=== PATIENT | male | born 1970 | race Two or more races ===

== ENCOUNTER 2020-05-04 08:19 | Inpatient (IN) | payer MEDICARE, OTHER ==
[~2020-05-04] VITALS: Ht 165.1 cm; Wt 101.8 kg
[2020-05-04] MEDS ORDERED: DEXTROSE 50% SYRINGE 50 ML IV ONE (08:24)
[2020-05-04] MEDS ORDERED: DEXTROSE 10% 1,000 ML IV ONE ×2 (08:29→08:45)
[2020-05-04 08:51] LABS: Basophils # (auto) 0.1 10 ^3/uL (0-0.2); Basophils % (auto) 0.8 % (0.0-2.0); Eosinophils # (auto) 0.3 10 ^3/uL (0-0.8); Eosinophils % (auto) 3.6 % (0.0-7.0); Hematocrit 40.2 % (41.0-53.0); Hemoglobin 13.5 g/dL (13.5-17.5); Lymphocytes # (auto) 2.3 10 ^3/uL (0.4-5.4); Lymphocytes % (auto) 27.5 % (10.0-50.0); Mean Corpuscular Hemoglobin 30.8 pg (28.0-32.0); Mean Corpuscular Hgb Conc. 33.7 g/dL (32.0-36.0); Mean Corpuscular Volume 91.6 fL (80.0-100.0); Monocytes # (auto) 0.6 10 ^3/uL (0-1.3); Monocytes % (auto) 7.4 % (0.0-12.0); Neutrophils # (auto) 5.1 10 ^3/uL (1.6-8.6); Neutrophils % (auto) 60.7 % (37.0-80.0); Platelet Count (auto) 390 10^3/uL (140-450); Red Blood Cells 4.39 10^6/uL (4.5-5.90); Red Cell Distribution Width 14.9 % (11.8-14.3); White Blood Cell 8.3 10^3/uL (4.4-10.8)
[2020-05-04 09:13] LABS: Alanine Aminotransferase 44 U/L (16-61); Anion Gap 6 (5-15); Aspartate Aminotransferase 40 U/L (15-37); Blood Urea Nitrogen 26 mg/dL (7-18); Calcium 8.5 mg/dL (8.5-10.1); Carbon Dioxide 21 mmol/L (21-32); Chloride 114 mmol/L (98-107); GFR African American 34 mL/min; GFR Non-African American 28 mL/min; Magnesium 2.2 mg/dL (1.6-2.6); Potassium 3.7 mmol/L (3.5-5.1); Sodium 141 mmol/L (136-145)
[2020-05-04 09:18] LABS: Alkaline Phosphatase 235 U/L (45-117); Bilirubin, Total 0.2 mg/dL (0.2-1.0); Total Protein 7.2 g/dL (6.4-8.2)
[2020-05-04 09:24] LABS: Glucose 38 mg/dL (74-106)
[2020-05-04 09:38] LABS: Albumin 2.1 g/dL (3.4-5.0)
[2020-05-04] MEDS ORDERED: HYDROcodone-ACET 5/325MG TAB PO PRN (13:30)
[2020-05-04] MEDS ORDERED: ACETAMINOPHEN 325 MG TAB PO PRN (13:30)
[2020-05-04] MEDS ORDERED: ONDANSETRON HCL 4 MG/2 ML VIAL IV PRN (13:30)
[2020-05-04] MEDS ORDERED: MORPHINE SULF INJ 2 MG/ML SYRINGE 1ML IV PRN ×2 (13:30)
[2020-05-04] MEDS ORDERED: DOCUSATE SOD 100 MG CAP PO PRN (13:30)
[2020-05-04] MEDS ORDERED: ALUM & MAG HYDROX-SIMETH LIQ(MAALOX) 30 ML PO PRN (13:30)
[2020-05-04] MEDS ORDERED: NITROGLYCERIN 0.4 MG SL TAB SL PRN (13:30)
[2020-05-04] MEDS ORDERED: LORazepam 0.5 MG TAB PO PRN (13:30)
[2020-05-04] MEDS ORDERED: SODIUM CHLORIDE 0.9% 1,000 ML IV SCH (14:00)
[2020-05-04] MEDS ORDERED: DEXTROSE (50%) 50ML SYRG IV PRN (14:00)
[2020-05-04] MEDS ORDERED: LISINOPRIL 20 MG TAB PO ONE (14:00)
[2020-05-04] MEDS ORDERED: LACTATED RINGER'S 1,000 ML IV ONE (14:00)
[2020-05-04] MEDS ORDERED: hydrALAZINE HCL 20 MG/ML VL IV PRN (14:00)
[2020-05-04] MEDS ORDERED: cefTRIAXone 1GM/50ML D5W 50 ML IV ONE (14:15)
[2020-05-04] MEDS ORDERED: D5W/SOD CHLO 0.9% 1,000 ML IV SCH (14:15)
[2020-05-04 15:46] LABS: Cholesterol 296 mg/dL (< 200); HDL Cholesterol 66 mg/dL (40-59); LDL Cholesterol 213 mg/dL (< 100); Triglycerides 165 mg/dL (< 150)
[2020-05-04] MEDS ORDERED: CHOL20007 PO (15:49)
[2020-05-04] MEDS ORDERED: AML5T PO (15:49)
[2020-05-04] MEDS ORDERED: INSREG3 SC (15:49)
[2020-05-04] MEDS ORDERED: OMEG306C PO (15:49)
[2020-05-04] MEDS ORDERED: INSLANTI SC (15:49)
[2020-05-04] MEDS ORDERED: FAMO-12 PO (15:49)
[2020-05-04] MEDS ORDERED: METO-159 PO (15:49)
[2020-05-04] MEDS ORDERED: ENALAPRILAT 1.25 MG/ML-1ML VIAL IV PRN (16:00)
[2020-05-04] MEDS ORDERED: ENALAPRILAT 1.25 MG/ML-1ML VIAL IV ONE (16:30)
[2020-05-04] MEDS: InsuLIN REG 1unit/0.01ml Soln (100units/ml) SC SCH ×2 (17:00→21:46)
[2020-05-04] MEDS: ACCU-CHEK COMFORT CURVE STRIP VI SCH ×2 (17:24→21:45)
[2020-05-04] MEDS: FUROSEMIDE 20 MG/2 ML VIAL IV SCH (17:35)
[2020-05-04] MEDS: METOPROLOL TARTRATE 25 MG TAB PO SCH (21:44)
[2020-05-04] MEDS: D5W/SOD CHLO 0.9% 1,000 ML IV SCH (21:45)
[2020-05-04 22:00] VITALS: BP 148/91
[2020-05-04] MEDS ORDERED: CARVEDILOL 3.125 MG TAB PO SCH (22:00)
[2020-05-04] MEDS ORDERED: ATORVASTATIN 20 MG TAB PO SCH (22:00)
[2020-05-04 22:13] LABS: Urine Bacteria NONE SEEN /hpf (None Seen); Urine Blood TRACE /uL (Negative); Urine Mucus FEW (None Seen); Urine Specific Gravity 1.008 (1.001-1.035); Urine WBC 1 /hpf (0 - 3)
[2020-05-04 22:25] LABS: Alcohol, Urine < 3.0 mg/dL (0-10); Amphetamine Screen, Urine NEGATIVE (NEGATIVE); Barbiturate Scree,Urine NEGATIVE (NEGATIVE); Benzodiazephine Screen, Urine NEGATIVE (NEGATIVE); Cannabinoid Screen, Urine NEGATIVE (NEGATIVE); Cocaine Screen, Urine NEGATIVE (NEGATIVE); Opiate Scree,Urine NEGATIVE (NEGATIVE); Phencyclidine Screen, Urine NEGATIVE (NEGATIVE)
[2020-05-05 05:00] VITALS: BP 155/92
[2020-05-05] MEDS: ACCU-CHEK COMFORT CURVE STRIP VI SCH ×2 (05:59→11:30)
[2020-05-05] MEDS: FUROSEMIDE 20 MG/2 ML VIAL IV SCH (06:04)
[2020-05-05] MEDS: InsuLIN REG 1unit/0.01ml Soln (100units/ml) SC SCH ×2 (06:19→11:30)
[2020-05-05 09:00] VITALS: BP 167/98
[2020-05-05] MEDS: METOPROLOL TARTRATE 25 MG TAB PO SCH (09:53)
[2020-05-05] MEDS ORDERED: LISINOPRIL 20 MG TAB PO SCH (10:00)
[2020-05-05] MEDS ORDERED: ENOXAPARIN SOD 40 MG/0.4 ML SYRINGE SC SCH (10:00)
[2020-05-05] MEDS ORDERED: ASPirin 81 mg TAB PO SCH (10:00)
[2020-05-05] MEDS: D5W/SOD CHLO 0.9% 1,000 ML IV SCH (11:25)
[2020-05-05 12:37] VITALS: BP 164/88
[2020-05-05 14:30] VITALS: BP 151/82
== END 2020-05-05 16:10 | disposition home or self-care (01) | DRG 637 ==
LOC: ER 08:19 → TELE 08:20 → TELE-WESTW 20:51
PROVIDERS: ADMIT Hospitalist; ATTEND Family Medicine
DX: E11.649 Type 2 diabetes mellitus with hypoglycemia without coma (principal); G93.41 Metabolic encephalopathy; E43 Unspecified severe protein-calorie malnutrition; C90.00 Multiple myeloma not having achieved remission; I10 Essential (primary) hypertension; E78.5 Hyperlipidemia, unspecified; E66.9 Obesity, unspecified; Z83.3 Family history of diabetes mellitus; Z91.19 Patient's noncompliance with other medical treatment and regimen; Z79.4 Long term (current) use of insulin; Z68.37 Body mass index [BMI] 37.0-37.9, adult; Z79.899 Other long term (current) drug therapy
CPT/HCPCS: 36415; 36600; 70450; 71045; 80053; 80061; 80307; 81001; 82805; 82962; 83036; 83735; 83880; 84484; 85025; 87040; 87086; 93005; 96365; 96375; 99291; G0378; J0696; J1815; J7042

== ENCOUNTER 2025-07-01 11:17 | Emergency (ER) | payer MEDICARE, OTHER ==
[~2025-07-01] VITALS: Ht 180.3 cm; Wt 72.5 kg
[~2025-07-01 11:17] MED LIST: AML5T PO; CHOL20007 PO; FAMO-12 PO; INSLANTI SC; INSREG3 SC; METO-159 PO; OMEG306C PO
[2025-07-01] MEDS ORDERED: LIDOCAINE HCL 100 MG/5ML (2%) SYRG INJ IV ONE (11:18)
[2025-07-01] MEDS ORDERED: EPINEPHrine HCL 1 MG/10 ML SYRG IV ONE (11:18)
[2025-07-01] MEDS ORDERED: SODIUM BICARB 8.4% 50Meq/50ml SYR INJ IV ONE (11:18)
[2025-07-01] MEDS ORDERED: CALCIUM CHLOR(10%) 100MG/ML 10ML SYRINGE IV ONE (11:18)
[2025-07-01] MEDS ORDERED: AMIODARONE HCL (50 MG/ ML) 3 ML VIAL IV ONE (11:18)
[2025-07-01] MEDS ORDERED: ATROPINE SULF 1 MG/10ml SYR IV ONE (11:18)
[2025-07-01] MEDS: SODIUM CHLORIDE 0.9% 1,000 ML IV ONE (12:10)
[2025-07-01] MEDS: PANTOPRAZOLE 40 MG/10 ML VIAL INJ IV ONE (12:13)
--- NOTE | 2025-07-01 12:29 | DVH ---
XY CHEST PORTABLE, HISTORY: R/O pneumonia COMPARISON: None None TECHNICAL DATA: 1 view of the chest was obtained. FINDINGS: Lines and tubes: None Cardiomediastinal silhouette: Prominent Pulmonary vasculature: prominent Lung expansion: normal Lung airspace: normal Lung interstitium: prominent Pleura: normal Pneumothorax: no Bones: Unremarkable Other: no IMPRESSION: Prominent interstitial reticulations can be seen with pulmonary edema.
--- NOTE | 2025-07-01 12:32 | ED.PDOC ---
History of Present Illness HPI Comments Gopal Garrido is a 55-year-old male, with past medical history of CKD stage V, on peritoneal dialysis (at home every night), Multiple Myeloma (on remission) and, hyperlipidemia. The patient came to the ED via EMS with chief complaint of 1 week of generalized weakness associated with loss of appetite, low oral intake, fatigue and shortness of breath while doing his usual activities at home. On further questioning, the patient reports 1 week of noticing dark stools and mild constipation. Today, the patient reports worsen on generalized weakness "it was difficult to get out of bed" this prompted his visit to the ED. The patient denies fever, chills, nausea, vomit, diarrhea, chest pain, hematochezia, abdominal pain or other symptoms. In the ED: BP 109/63mmHg. HR: 100bpm. The patient will be admitted for further assessment and management. Chief Complaint: General Weakness Time Seen by MD: 11:27 Reviewed Notes: Nurses Notes, Medications, Allergies Allergies: Coded Allergies: UNOBTAINABLE (Unverified , 05/04/20) ALOC Home Meds Reported Medications [place]-3 Fatty Acids (FISH OIL) Unknown Strength Cap, PO DAILY, CAP 05/04/20 Cholecalciferol (VITAMIN D3) Unknown Strength Tab, PO DAILY, #30 TAB 5 Refills 05/04/20 Famotidine (Famotidine) Unknown Strength Tab, PO BID, MG 05/04/20 Amlodipine Besylate (NORVASC TABLET) 5 Mg Tb, 2 TAB PO BID, #30 TAB 5 Refills 05/04/20 Metoprolol Tartrate (Metoprolol Tartrate) 100 Mg Tab, 1 TAB PO BID, #60 TAB 5 Refills 05/04/20 Insulin Glargine (Lantus) 100 Unit/Ml Inj, 70 UNIT SC HS, INJ 05/04/20 Insulin Regular (Human) (Humulin R) 100 Unit/Ml Inj, 30 UNIT SC TID, INJ 05/04/20 Information Source: Patient, Emergency Med Personnel (EMS team) Mode of Arrival: EMS Severity: Moderate Timing: Weeks Duration: Since onset Prehospital treatment: 12 Lead EKG, Oxygen (3 lts due to low O2Sat (93%) ) Past Medical History PAST MEDICAL HISTORY: DM, ESRD (stage V, on peritoneal dyalisis at home every night. ) Past Medical History (Other): Multiple myeloma (on remission, he was treated on [facility]) Surgical History: Denies all surgeries Family History Family History: Reviewed,noncontributory to illness Social History Smoker: Non-Smoker Alcohol: Denies ETOH Use Drugs: Denies Drug Use Constitutional: reports: fatigue, weakness (generalized weakness. ); denies: chills, diaphoresis, fever, malaise, sweats, others EENTM: denies: blurred vision, double vision, ear bleeding, ear discharge, ear drainage, ear pain, ear ringing, eye pain, eye redness, hearing loss, mouth pain, mouth swelling, nasal discharge, nose bleeding, nose congestion, nose pain, photophobia, tearing, throat pain, throat swelling, voice changes, others Respiratory: reports: shortness of breath; denies: cough, hemoptysis, orthopnea, SOB at rest, SOB with excertion, stridor, wheezing, others Cardiovascular: denies: chest pain, dizzy spells, diaphoresis, Dyspnea on exertion, edema, irregular heart beat, left arm pain, lightheadedness, palpitations, PND, syncope, others Gastrointestinal: reports: poor appetite (and low oral intake. ), others (low oral intake.) Genitourinary: denies: burning, dysuria, flank pain, frequency, hematuria, incontinence, penile discharge, penile sore, pain, testicle pain, testicle swelling, urgency, others Neurological: denies: dizziness, fainting, headache, left sided numbness, left sided weakness, numbness, paresthesia, pre-existing deficit, right sided numbness, right sided weakness, seizure, speech problems, tingling, tremors, weakness, others Musculoskeletal: denies: back pain, gout, joint pain, joint swelling, muscle pain, muscle stiffness, neck pain, others Integumetry: denies: bruises, change in color, change in hair/nails, dryness, laceration, lesions, lumps, rash, wounds, others Allergic/Immunocompromised: denies: Difficulty Healing, Frequent Infections, Hives, Itching, others Hematologic/Lymphatic: reports: anemia; denies: blood clots, easy bleeding, easy bruising, swollen glands, others Endocrine: denies: excessive hunger, excessive sweating, excessive thirst, excessive urination, flushing, intolerance to cold, intolerance to heat, unexplained weight gain, unexplained weight loss, others Psychiatric: denies: anxiety, bipolar disorder, depression, hopeless, panic disorder, schizophrenia, sleepless, suicidal, others Physical Exam Exam Comments Alert, Oriented x3, on O2 by NC, Saturation O2 99 General Appearance: Mild Distress, Other (pale, slow movement and talks slow. ) HEENT: Normal ENT Inspection, Pharynx Normal, TMs Normal Neck: Full Range of Motion, Non-Tender, Normal Inspection Respiratory: Chest Non-Tender, Lungs Clear, No Accessory Muscle Use, No Respiratory Distress, Normal Breath Sounds Cardiovascular: No Edema, No JVD, No Murmur, No Gallop, Normal Peripheral Pulses, Regular Rate/Rhythm Breast Exam: Deferred Gastrointestinal: No Organomegaly, Non Tender, No Pulsatile Mass, Normal Bowel Sounds, Soft, Other (Left flant: PD tube. 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 Was a procedure done?: No Differential Dx Considerations may include: #Sepsis. # UTI X-Ray, Labs, Meds, VS Vital Signs Date Time Temp Pulse Resp B/P (MAP) Pulse Ox O2 Delivery O2 Flow Rate FiO2 07/01/25 12:42 98 14 137/63 (87) 100 07/01/25 11:59 98.6 101 19 117/47 (70) 96 98.6 07/01/25 11:36 98.3 100 24 109/63 93 98.3 Lab Test 07/01/25 12:22 Range/Units White Blood Count 14.0 H 4.4-10.8 10^3/uL Red Blood Count 1.93 L 4.5-5.90 10^6/uL Hemoglobin 6.3 *L 13.5-17.5 g/dL Hematocrit 19.3 L 41.0-53.0 % Mean Corpuscular Volume 99.8 80.0-100.0 fL Mean Corpuscular Hemoglobin 32.5 H 28.0-32.0 pg Mean Corpuscular Hemoglobin Concent 32.5 32.0-36.0 g/dL Red Cell Distribution Width 14.9 H 11.8-14.3 % Platelet Count 241 140-450 10^3/uL Mean Platelet Volume 7.8 6.9-10.8 fL Neutrophils (%) (Auto) 91.2 H 37.0-80.0 % Lymphocytes (%) (Auto) 3.7 L 10.0-50.0 % Monocytes (%) (Auto) 4.4 0.0-12.0 % Eosinophils (%) (Auto) 0.3 0.0-7.0 % Basophils (%) (Auto) 0.4 0.0-2.0 % Neutrophils # (Auto) 12.8 H 1.6-8.6 10 ^3/uL Lymphocytes # (Auto) 0.5 0.4-5.4 10 ^3/uL Monocytes # (Auto) 0.6 0-1.3 10 ^3/uL Eosinophils # (Auto) 0 0-0.8 10 ^3/uL Basophils # (Auto) 0.1 0-0.2 10 ^3/uL Nucleated Red Blood Cells 0.3 % Sodium Level 135 L 136-145 mmol/L Potassium Level 3.0 L 3.5-5.1 mmol/L Chloride Level 93 L 98-107 mmol/L Carbon Dioxide Level 25 20-31 mmol/L Anion Gap 17 H 5-15 Blood Urea Nitrogen Pending Creatinine Pending Glomerular Filtration Rate Calc Pending BUN/Creatinine Ratio Pending Serum Glucose Pending Lactic Acid Level Pending Calcium Level 8.3 L 8.7-10.4 mg/dL Plasma/Serum Blood Alcohol < 3.0 <10 mg/dL Current Medications Medications (Trade) Dose Ordered Sig/Yessenia Route Start Time Stop Time Status Last Admin Sodium Chloride 1,000 ml @ 1,000 mls/hr Q1H ONCE IV 07/01/25 11:45 07/01/25 12:44 DC 07/01/25 12:10 Pantoprazole Sodium (Protonix) 40 mg ONCE ONCE IV 07/01/25 11:45 07/01/25 11:46 DC 07/01/25 12:13 X-Ray, Labs, Meds, VS Comment 12:51 The patient was re-evaluated HR: 101 bpm BP:137/63mmHg CBC: WBC: 14.0x10e3/uL Hb: 6.3mg/dl Type and screen has been request CMP pending at this time. The patient will be admitted for further assessment and management Time of 1ST Reevaluation: 12:51 Reevaluation 1ST: Unchanged Patient Education/Counseling: Diagnosis, Treatment, Prognosis, Need For Follow Up Family Education/Counseling: Diagnosis, Treatment, Prognosis, Need For Follow Up SEPSIS Sepsis Screen Recent Procedure: Yes On Antibiotic Therapy: Yes Respiratory Rate >20: Yes Heart Rate >90: Yes Temp<36 C (96.8 F) or >38.3 C: No SBP <90 or MAP <65 mmHG: Yes New Acute Mental Status Change: No Is the patient on CPAP, BIPAP,: No IV fluid challenge completed?: No Physician Orders Chest Portable (07/01/25 11:41) Urinalysis (07/01/25 11:41) Basic Metabolic Panel (07/01/25 11:41) Drug Screen (07/01/25 11:41) Blood Alcohol (07/01/25 11:41) Gastric Occult Blood (07/01/25 11:41) Accucheck (07/01/25 12:01) Lactated Ringer's (07/01/25 12:15) Blood Culture (07/01/25 12:01) Lactic Acid W/ Reflex Order (07/01/25 14:00) Lactic Acid W/ Reflex Order (07/01/25 16:00) Cefepime 1gm/50ml (Maxipime 1gm/50ml) (07/01/25 14:00) Notify Md If Map <65 Or Bp<90 (07/01/25 12:01) If Map<65 Start Vasopressor (07/01/25 12:01) Sepsis Reassesment After Fluid (07/01/25 13:01) Type And Screen (07/01/25 12:43) Vital Signs Date Time Temp Pulse Resp B/P (MAP) Pulse Ox O2 Delivery O2 Flow Rate FiO2 07/01/25 12:42 98 14 137/63 (87) 100 07/01/25 11:59 98.6 101 19 117/47 (70) 96 98.6 07/01/25 11:36 98.3 100 24 109/63 93 98.3 Laboratory Tests Test 07/01/25 12:22 Lactic Acid Level Pending White Blood Count 14.0 10^3/uL (4.4-10.8) H Medications Medications Dose Ordered Sig/Yessenia Route Start Time Stop Time Status Last Admin Dose Admin Pantoprazole Sodium 40 mg ONCE ONCE IV 07/01/25 11:45 07/01/25 11:46 DC 07/01/25 12:13 Sodium Chloride 1,000 ml @ 1,000 mls/hr Q1H ONCE IV 07/01/25 11:45 07/01/25 12:44 DC 07/01/25 12:10 Departure 1 Departure Time of Disposition: 12:51 Impression: Primary Impression: GI bleed Additional Impressions: Multiple myeloma Severe anemia Disposition: ADMITTED INPATIENT Condition: Guarded Comments The patient was re-evaluated HR: 101 CBC: WBC: x10e3/uL Hb: mg/dl CMP pending at this time. The patient will admitted for further assessment and management. Critical Care Note Critical Care Time?: Yes (45 min-critical care time only) Stability Stability form required: Yes Unstable for transfer: Telemetry monitoring, ED Physician Assesment Heart Score Heart Score: Heart Score Response (Comments) Value History N/A 0 EKG N/A 0 Age N/A 0 Risk Factors N/A 0 Troponin N/A 0 Total 0 MICHAEL HUI RESIDENT Jul 01, 2025 12:32
[2025-07-01 12:35] LABS: Mean Corpuscular Volume 99.8 fL (80.0-100.0)
[2025-07-01 12:36] LABS: Hematocrit 19.3 % (41.0-53.0); Mean Corpuscular Hemoglobin 32.5 pg (28.0-32.0); Nucleated Red Blood Cells % 0.3 %
[2025-07-01 12:45] LABS: Anion Gap 17 (5-15); Carbon Dioxide 25 mmol/L (20-31); Hemoglobin 6.3 g/dL (13.5-17.5)
[2025-07-01 12:49] LABS: Calcium 8.3 mg/dL (8.7-10.4); Chloride 93 mmol/L (98-107); Potassium 3.0 mmol/L (3.5-5.1); Sodium 135 mmol/L (136-145)
[2025-07-01 12:50] LABS: BUN/Creatinine Ratio 4.3 (10.0-20.0)
[2025-07-01 12:51] LABS: Blood Urea Nitrogen 54 mg/dL (9-23); Glucose 151 mg/dL (74-106)
[2025-07-01 13:15] VITALS: O2SAT 100
[2025-07-01 13:37] LABS: Lactic Acid w/Reflex 4.7 mmol/L (0.4-2.0)
[2025-07-01] MEDS: CEFEPIME 1GM/50ML 50 ML IV ONE (15:00)
[2025-07-01] MEDS: LACTATED RINGER'S 2,250 ML IV ONE (15:10)
[2025-07-01] MEDS: HYDROmorphone HCL 2 MG/ML VL/or syr IV ONE (17:51)
[2025-07-01 18:50] LABS: Lactic Acid w/Reflex 7.2 mmol/L (0.4-2.0)
[2025-07-01] MEDS ORDERED: MORPHINE SULFATE 4 MG/ML SYR/VIAL IV ONE (19:00)
[2025-07-01] MEDS: HYDROcodone-ACET 10/325MG TAB PO ONE (19:15)
[2025-07-01] MEDS: ONDANSETRON HCL 4 MG/2 ML VIAL IV ONE (19:15)
[2025-07-01 19:16] VITALS: TEMP 97.3
[2025-07-01] MEDS: FUROSEMIDE 40 MG/4 ML VIAL IV ONE (19:19)
[2025-07-01] MEDS: NALOXONE HCL 1MG/ML 2ML SYRINGE ONE (19:38)
[2025-07-01] MEDS: NALOXONE HCL 1MG/ML 2ML SYRINGE IV ONE ×3 (19:39→20:30)
[2025-07-01 20:00] VITALS: O2SAT 93
--- NOTE | 2025-07-01 20:11 | ECG ---
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
--- NOTE | 2025-07-01 20:35 | ECG ---
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
[2025-07-01 20:37] VITALS: PULSE 56; RESP 10
[2025-07-01] MEDS: ROCURONIUM 10MG/ML 10ML VIAL IV ONE ×2 (20:37→20:39)
[2025-07-01] MEDS: ETOMIDATE (2MG/ML) 20ML VIAL IV ONE ×2 (20:37→20:38)
[2025-07-01] MEDS: NOREPINEPHRINE 8 MG/250ML KIT 250 ML IV SCH (20:45)
[2025-07-01] MEDS: NOREPINEPHRINE 8 MG/250ML KIT 250 ML IV ONE (20:45)
[2025-07-01] MEDS: EPINEPHrine HCL 1 MG/10 ML SYRG ONE (20:46)
[2025-07-01] MEDS: EPINEPHrine HCL 250 ML IV ONE ×2 (20:46→20:54)
[2025-07-01 21:00] VITALS: BP 153/52
--- NOTE | 2025-07-01 21:28 | RESUS ---
CODE BLUE ASSESSSMENT History of Events History of Events: Patient became bradycardic while in ER and we lost pulses despite 1 atropine given. Patient was recently intubated. Code blue was initiated. Initial Information Date: Jul 01, 2025 Time: 20:52 Location of Arrest: ER Arrest Witnessed: Yes CPR started initial time: 20:52 CPR started by whom: Hospital Staff Last seen well: 30 min prior Pre-Hospital Care: ACLS Type of arrest: Cardiac, Adult, Witnessed Spontaneous Respirations: No Pulse Present: No Monitoring: ECG, Pulse Oximetry, Telemetry Crash Cart Opened and Supplies: Yes Airway Ventilation Breathing at Onset: Assisted O2 Sat by Pulse Oximetry: 98 Oxygen Delivery Method: Ambu-Bag Artificial Ventilation: Bag/Endo tube Intubation Size: 8.0 cuffed Intubated by: Dr. Mir Intubation Attempts: 1 Intubated orally: Yes Tube secured at: 23 (@ lip) Confirmation: Auscultation (with color change) Suctioning (Oral/Tracheal): Yes Circulation Circulation #1: Time: 20:52 Pulse Rate (adult): 0 Blood Pressure Systolic: 0 Blood Pressure Diastolic: 0 Temperature (Fahrenheit): 97.3 Circulation Comment: CODE BLUE - CPR STARTED Circulation #2: Time: 20:54 Pulse Rate (adult): 170 Blood Pressure Systolic: 0 Blood Pressure Diastolic: 0 Circulation Comment: VFIB - Shocked Circulation #3: Time: 20:56 Pulse Rate (adult): 168 Circulation Comment: VFIB - Shocked Circulation #4: Time: 20:58 Pulse Rate (adult): 160 Circulation Comment: VFIB - Shocked Circulation #5: Time: 21:00 Pulse Rate (adult): 160 Circulation Comment: VFIB - Shocked Circulation #6: Time: 21:02 Pulse Rate (adult): 110 Circulation Comment: PEA Circulation #7: Time: 21:04 Pulse Rate (adult): 0 Blood Pressure Systolic: 0 Blood Pressure Diastolic: 0 Circulation Comment: Asystole Circulation #8: Time: 21:06 Pulse Rate (adult): 0 Circulation Comment: Asystole Circulation #9: Time: 21:08 Pulse Rate (adult): 0 Circulation #10: Time: 21:10 (Asystole- Pronounced by Dr. Adeola Ramos ) Circulation Comment: TOD Defibrillation Defbrillation #1: Time Defibrillator Applied: 20:54 EKG Rhythm: V-Fibrillation Compressions: Manual Time Defibrillator Shocked Pt.: 20:54 Defib. Joules: 120 Pulse Present: No Defbrillation #2: Time Defibrillator Applied: 20:56 EKG Rhythm: V-Fibrillation Compressions: Manual Time Defibrillator Shocked Pt.: 20:56 Defib. Joules: 200 Pulse Present: No EKG Rhythm: V-Fibrillation Defbrillation #3: Time Defibrillator Applied: 20:58 EKG Rhythm: V-Fibrillation Compressions: Manual Time Defibrillator Shocked Pt.: 20:58 Defib. Joules: 200 Pulse Present: No EKG Rhythm: V-Fibrillation Defbrillation #4: Time Defibrillator Applied: 21:00 EKG Rhythm: V-Fibrillation Compressions: Manual Time Defibrillator Shocked Pt.: 21:00 Defib. Joules: 200 Pulse Present: No EKG Rhythm: PEA Procedure - IV Procedure - IV #1: IV Side: Left IV Location: Wrist IV Placed: In Hospital IV Gauge: 20 Procedure - IV #2: IV Side: Right IV Location: Wrist IV Catheter Type: Peripheral IV IV Gauge: 20 IV Line Care: Saline Flush Comment already placed Medications & Response Medications and Responses #1: Medication Time: 20:53 ADULT Medications Given ADULT: Epinephrine 1 mg, Sodium Bacarbinate 50 meq, Calcium Chloride 10 mL Route of Administration: IV Heart Rate: 170 EKG Rhythm: V-Fibrillation Blood Pressure Systolic: 0 Blood Pressure Diastolic: 0 Medications and Responses #2: Medication Time: 20:56 ADULT Medications Given ADULT: Epinephrine 1 mg, Amiodarone 300 mg Route of Administration: IV Heart Rate: 169 EKG Rhythm: V-Fibrillation EKG Rhythm: V-Fibrillation Medications and Responses #3: Medication Time: 20:59 ADULT Medications Given ADULT: Epinephrine 1 mg, Amiodarone 150 mg Route of Administration: IV Medication Comment: 1 unit Blood started at this time Heart Rate: 169 EKG Rhythm: V-Fibrillation EKG Rhythm: V-Fibrillation Medications and Responses #4: Medication Time: 21:02 ADULT Medications Given ADULT: Epinephrine 1 mg, Lidocaine 1.5 mg/kg (100mg per verbal), Sodium Bacarbinate 50 meq Route of Administration: IV Heart Rate: 170 Medications and Responses #5: Medication Time: 21:03 ADULT Medications Given ADULT: Calcium Chloride 10 mL Medications and Responses #6: Medication Time: 21:05 ADULT Medications Given ADULT: Epinephrine 1 mg Route of Administration: IV Heart Rate: 0 EKG Rhythm: Asystole Medications and Responses #7: Medication Time: 21:08 ADULT Medications Given ADULT: Epinephrine 1 mg, Sodium Bacarbinate 50 meq Route of Administration: IV Heart Rate: 0 EKG Rhythm: Asystole EKG Rhythm: Asystole Nurses Notes [place] Coma Scale Eye Opening: None (1) [place] Coma Scale Verbal: None (1) [place] Coma Scale Motor: None (1) [place] Total: 3 Pupil Reaction: Non Reactive Bedside Blood Glucose: 127 EKG Rhythm: Asystole Time Code Ended Time Code Ended: 21:10 Post Arrest Status: Outcome of code: Unsuccessful Patient pronounced by: Dr. Adeola Ramos Time patient pronounced: 21:10 Family notified: Yes Attending called: No Code Team Present: Dr. Araiaz,Dr. Ramos, Dr. Salas, Dr. Castro, Dannie PERDOMO clinical care manager, Pilar Hector RN, Tucker RN, Zoë RN, Beeb RN Kenroy ERT, Jose ERT Post Resuscitation Neurologica Pupil Size: 6 Comment: Dilated, Equal, non reactive to light BEBE BATISTA Jul 01, 2025 21:28
[2025-07-02] MEDS ORDERED: CEFEPIME 0.5 GM in SODIUM CHL 0.9% 50 ML IV SCH (22:00)
== END 2025-07-01 21:10 ==
LOC: ER 11:17 → EDBD 11:17 → ER 21:10
DX: K92.2 Gastrointestinal hemorrhage, unspecified (principal); C90.00 Multiple myeloma not having achieved remission; D64.9 Anemia, unspecified; E11.22 Type 2 diabetes mellitus with diabetic chronic kidney disease; N18.6 End stage renal disease; E78.5 Hyperlipidemia, unspecified; Z03.89 Encounter for observation for other suspected diseases and conditions ruled out; Z79.4 Long term (current) use of insulin; Z79.899 Other long term (current) drug therapy; Z99.2 Dependence on renal dialysis; Z98.890 Other specified postprocedural states
CPT/HCPCS: 36415; 36430; 71045; 80048; 80320; 83605; 84484; 85025; 86850; 86900; 86901; 86920; 87040; 92950; 93005; 96361; 96365; 96366; 96375; 96376; 99291; J0169; J0282; J0692; J1171; J2312; J2470; P9016; J2405